=== PATIENT | male | born 1930 | race Caucasian/White ===

== ENCOUNTER 2019-06-25 15:26 | Emergency (ER) | payer OTHER ==
[2019-06-25] MEDS ORDERED: SODIUM CHLORIDE 500 ML IV STA (15:58)
[2019-06-25 16:02] VITALS: BMI 26.4
--- NOTE | 2019-06-25 16:05 | PDOC ---
History of Present Illness - General Chief Complaint: Diarrhea Stated Complaint: DIARRHEA & PAIN Time Seen by Provider: 06/25/19 15:31 History Source: Patient Exam Limitations: No Limitations - History of Present Illness Initial Comments: 06/26/19 21:33 88M PMH HTN, HLD presenting from Dr. Coughlin's office for evaluation of left abdominal bump and pain in the region. Pt had a short diarrheal illness 3 days ago and states he has not made a BM x 2 days. Pain is nonradiating and localized to the bump, which he has not noticed. Denies f/c, n/v, abdominal pain except as stated. Denies cp/sob, dysuria. h/o inguinal hernias; denies abd surg. Allergy to iodinated contrast (hives/rash) Past History - Past Medical History Allergies/Adverse Reactions: Allergies Allergy/AdvReac Type Severity Reaction Status Date / Time Iodinated Contrast Media Allergy Intermediate Hives Verified 06/25/19 15:57 kiwi Allergy Verified 06/25/19 15:53 Home Medications: Ambulatory Orders Omeprazole 20 mg PO MOWEFR 03/24/13 Tamsulosin HCl 0.4 mg PO DAILY 03/24/13 Ascorbic Acid [Vitamin C] 500 mg PO TIW tablet 08/03/13 Cholecalciferol (Vitamin D3) [Vitamin D3] 1,000 unit PO DAILY tablet 08/03/13 Cyanocobalamin (Vitamin B-12) [Vitamin B-12] 500 mcg PO TIW tablet 08/03/13 Green Tea [place] Extract [Green Tea] 1 each PO HS capsule 08/03/13 Multivitamin [Daily Multiple Vitamin] 1 each PO DAILY tablet 08/03/13 Amlodipine Besylate 2.5 mg PO HS tablet 10/15/14 Aspirin [Aspir-Low] 81 mg PO DAILY tablet 10/17/15 Selenomethionine [Selenium] 200 mcg PO MOWEFR tablet 10/17/15 Amoxicillin/Potassium Clav [Augmentin 875-125 Tablet] 1 each PO BID #20 tablet 06/25/19 Atorvastatin Ca [Lipitor] 40 mg PO DAILY 06/25/19 Glucosa Diop 2Kcl/Chondroitin Diop [Glucosamine & Chondroitin Cap] 2 each PO DAILY 06/25/19 Review of Systems - Review of Systems Able to Perform ROS?: Yes Comments:: 06/26/19 21:33 CONSTITUTIONAL: Denies F / C HEENT: Denies headache, lightheadedness, dizziness RESP: Denies SOB CARD: Denies chest pain GI: Endorses tender abdominal bump. Denies N / V / D, bloody stool, inability to tolerate PO : Denies dysuria SKIN: Denies rashes NEURO: Denies numbness, tingling, weakness MSK: Denies back pain *Physical Exam - Physical Exam 06/26/19 21:33 GEN: Well appearing, NAD, comfortable. AAOx3. HEENT: NC/AT. No facial asymmetry. Normal voice. Supple neck w/ FROM. CV: S1/S2, RRR, no m/r/g LUNG: CTAB, no wheezes, crackles, rales, rhonchi. GI: No rashes or overlying skin changes. Irregular abdominal contour with " bulge" of the left and right obliques. mild TTP of the left oblique bulge. o/w soft, ndnt, +BS, no guarding, no rebound. MSK: No obvious deformities of all extremities. SKIN: Warm, dry, no rashes appreciated. PSYCH: Normal mood and affect. NEURO: Moving all extremities well. ED Treatment Course - LABORATORY CBC & Chemistry Diagram: 06/25/19 16:20 06/25/19 16:20 Medical Decision Making - Medical Decision Making 06/25/19 16:01 88M PMH HTN, HLD presenting from Dr. Coughlin's office for evaluation of left abdominal bump and pain in the region; +diarrhea illness recently. DDx - hernia? colitis - labs - CT noncon 06/25/19 17:[address] report as follows: Impression: Acute uncomplicated diverticulitis is seen involving the middle third of the descending colon. 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 A possible nonspecific 1.3 cm pancreatic body cyst is noted. MRI/MRCP evaluation is suggested. Alternatively consider two month follow-up CT. The partially imaged lower chest demonstrates focal opacification within the posterior basal segment of the left lower lobe which may represent an infiltrate or possibly rounded atelectasis. Neoplastic disease is probably less likely. Comparison with prior exams would be quite helpful if available from a different facility. If prior studies are not available correlation with a dedicated chest CT exam is suggested with possible one month follow-up CT. mild uncomplicated diverticulitis cipro/flagyl outpatient dc home w/ pcp f/u d/w Dr. Coughlin recommended avoiding quinolones switched to augmentin DC home w/ augmentin and pcp f/u next week Discharge - Discharge Information Problems reviewed: Yes Clinical Impression/Diagnosis: Diverticulitis Condition: Good Disposition: HOME - Admission No - Additional Discharge Information Prescriptions: Amoxicillin/Potassium Clav [Augmentin 875-125 Tablet] 1 each PO BID #20 tablet - Follow up/Referral Referrals: Roel Coughlin MD [Primary Care Provider] - - Patient Discharge Instructions Patient Printed Discharge Instructions: DI for Diverticulitis Additional Instructions: Your CT scan demonstrated mild uncomplicated diverticulitis; please read the attached forms for more information regarding this illness. Eat a high fiber diet; try to have regular bowel movements; avoid constipation. You received your first dose of antibiotics in the Emergency Department. We have sent a prescription for Augmentin to your pharmacy; please pick it up and take as prescribed. Finish the entire course. Follow up with Dr. Coughlin in the 7-10 days. Immediately return to the nearest Emergency Department if you experience worsen ing or change in pain, inability to eat or drink, vomiting, bloody stool, fevers, or anything that concerns you. - Post Discharge Activity
--- NOTE | 2019-06-25 16:21 | PDOC ---
Attending Attestation - Resident Resident Name: William Dykes - ED Attending Attestation I have performed the following: I have examined & evaluated the patient, The case was reviewed & discussed with the resident, I agree w/resident's findings & plan - HPI HPI: 06/25/19 16:16 88-year-old man with history of hypertension presents from PCP office with focal abdominal pain. Patient was in usual state of good health, 3 days ago had 2-3 episodes of nonbloody diarrhea that was painless and not associated with any fevers or chills. The following day, had small bowel movement, and has felt constipated since then over the last 2 days. Developed a localized left lateral abdominal pain since yesterday, no associated nausea or vomiting or fevers or chills, positive flatus but no further bowel movement, presented to Dr. Coughlin's office and is now sent for evaluation. Last colonoscopy was reportedly 10 years ago and within normal limits. Denies knowledge of diverticulosis. Patient had hernia surgeries in 1959 and 1984, no history of obstruction. - Physicial Exam PE: 06/25/19 16:18 Vital signs stable Well-appearing lying comfortably in stretcher, elderly gentleman speaking coherently in no acute distress No jaundice or pallor, moist mucosa Heart is regular, lungs are clear Abdomen soft/slightly distended. Predominantly nontender except over localized swelling in the left lateral abdomen, no skin discoloration but tender to palpation. Possible hernia with attempted reduction but unsuccessful. Positive spontaneously reducing ventral hernia. Bowel sounds are within normal limits, no groin hernia, exam is normal. - Medical Decision Making 06/25/19 16:19 88-year-old male with recent diarrheal illness presents now with constipation and left mid abdominal pain, hemodynamically stable and afebrile. No general peritoneal findings on examination, but localized tenderness along the left lateral abdominal wall, suspicious for spigelian hernia with incarceration, possible colitis/diverticulitis, not consistent with volvulus. labs, ua ivf ctap (contrast allergy) reassess 06/25/19 17:12 White count 10.3, chemistries within normal limits including troponin, urinalysis clear. On my preliminary review of the CAT scan, there appeared to be some inflammatory changes in the descending colon without evidence of hernia or obstruction, could be consistent with colitis or diverticulitis. Awaiting CT results, patient otherwise comfortable. 06/25/19 17:30 uncomplicated descending diverticulitis without perf or abscess. given afebrile and no leukocytosis without diffuse peritoneal findings or severe pain, can opt to treat as outpt. will discuss with Dr. Coughlin and arrange close f/u. Heart Score/ECG Review #1 ECG reviewed & interpreted by me at: 16:40 General ECG Interpretation: Sinus Rhythm, Normal Rate (73), Normal Intervals (MD 260, qtc 431), No acute ischemic changes
[2019-06-25 16:38] LABS: BASO % 1.3 % (0-2.0); EOS % 2.3 % (0-4.5); HEMATOCRIT 40.6 % (35.4-49); HEMOGLOBIN 13.5 GM/dl (11.7-16.9); LYMPH % 16.6 % (8-40); MCH 31.5 pg (25.7-33.7); MCHC 33.1 g/dl (32.0-35.9); MEAN CELL VOLUME 95.2 fl (80-96); MEAN PLT VOLUME 8.8 fl (7.5-11.1); MONO % 9.1 % (3.8-10.2); NEUT % 70.7 % (42.8-82.8); PLATELET COUNT 179 K/MM3 (134-434); RBC 4.27 M/mm3 (4.00-5.60); RDW 12.6 % (11.9-15.9); WHITE BLOOD COUNT 10.3 K/mm3 (4.0-10.8)
[2019-06-25 16:54] LABS: ACTIVATED PTT 68.2 SECONDS (25.2-36.5)
[2019-06-25 16:55] LABS: ALBUMIN 3.6 g/dl (3.4-5.0); BILIRUBIN,TOTAL 1.1 mg/dl (0.2-1); CALCIUM 8.3 mg/dl (8.5-10); CREATININE 1.2 mg/dl (0.55-1.3); POTASSIUM 3.9 mmol/L (3.5-5.1); TOT PROT 6.5 g/dl (6.4-8.2)
[2019-06-25 16:59] LABS: INR 1.35 (0.82-1.09)
[2019-06-25] MEDS ORDERED: metroNIDAZOLE 500 MG TABLET PO ONE (17:33)
[2019-06-25] MEDS ORDERED: CIPROFLOXACIN 500 MG TABLET (RESTRICTED TO ID) PO ONE (17:33)
[2019-06-25] MEDS ORDERED: AMOX TR/POT CLAV 875MG/125MG TABLETS (FP) PO ONE (17:45)
[2019-06-25] MEDS ORDERED: AMOX TR/POT CLAV 875MG/125MG TABLETS (FP) ONE (17:57)
[2019-06-25 18:06] VITALS: BP 137/69; PULSE 82; TEMP 98.2
--- NOTE | 2019-06-26 11:01 | EKG ---
Test Reason : Blood Pressure : / mmHG Vent. Rate : 073 BPM Atrial Rate : 073 BPM P-R Int : 260 ms QRS Dur : 074 ms QT Int : 392 ms P-R-T Axes : 021 001 034 degrees QTc Int : 431 ms SINUS RHYTHM WITH 1ST DEGREE A-V BLOCK OTHERWISE NORMAL ECG NO PREVIOUS ECGS AVAILABLE Confirmed by CECILIA RUBI MD ([id number]) on 06/26/2019 11:00:53 AM Referred By: DR FAJARDO Confirmed By:CECILIA RUBI MD
== END 2019-06-25 18:10 | disposition home or self-care (01) ==
LOC: FER 15:26
PROC: 3E0337Z Introduction of Electrolytic and Water Balance Substance into Peripheral Vein, Percutaneous Approach (ICD-10-PCS; principal; 2019-06-25)
DX: K57.92 Diverticulitis of intestine, part unspecified, without perforation or abscess without bleeding (principal); Z91.041 Radiographic dye allergy status; I10 Essential (primary) hypertension; E78.5 Hyperlipidemia, unspecified
CPT/HCPCS: 36415; 74176-TC; 80053; 81003; 81015; 82550; 83605; 83690; 83735; 84484; 85025; 85610; 85730; 86850; 86900; 86901; 93005; 96360; 99285-25